=== PATIENT | female | born 1995 | race Caucasian/White ===

== ENCOUNTER 2018-08-28 16:31 | Emergency (ER) | payer MEDICAID ==
[2018-08-28] MEDS: ACETAMINOPHEN 500 MG TAB PO (17:10)
[2018-08-28 17:28] LABS: ADD MAN DIFF? NO
[2018-08-28 17:36] LABS: WHITE BLOOD COUNT 11.4 10^3/ul (4.8-10.8)
[2018-08-28 17:36] LABS: BASOPHILS % 0.3 % (0.0-2.0); EOSINOPHILS % 0.4 % (0.0-7.0); HEMATOCRIT 36.2 % (37.0-47.0); HEMOGLOBIN 12.5 g/dl (12.0-16.0); LYMPHOCYTES # 2.5 10^3/ul (0.8-2.9); LYMPHOCYTES % 21.8 % (15.0-51.0); MEAN CORPUSCULAR HEMOGLOBIN 29.8 pg (29.0-33.0); MEAN CORPUSCULAR HGB CONC 34.5 g/dl (32.0-37.0); MEAN CORPUSCULAR VOLUME 86.4 fl (82.0-101.0); MEAN PLATELET VOLUME 8.5 fl (7.4-10.4); MONOCYTE # 0.5 10^3/ul (0.3-0.9); MONOCYTES % 4.1 % (0.0-11.0); NEUTROPHIL # 8.3 10^3/ul (1.6-7.5); PLATELET COUNT 433 10^3/UL (140-415); RED BLOOD COUNT 4.19 10^6/ul (4.20-5.40); RED CELL DISTRIBUTION WIDTH 12.9 % (11.5-14.5)
[2018-08-28 17:55] LABS: ADD UMIC YES; UR ASCORBIC ACID NEGATIVE (NEGATIVE); UR BACTERIA MANY /HPF (NONE SEEN); UR BILIRUBIN (Dip) NEGATIVE (NEGATIVE); UR BLOOD (Dip) NEGATIVE (NEGATIVE); UR CLARITY CLOUDY (CLEAR); UR COLOR YELLOW (YELLOW); UR GLUCOSE (Dip) NEGATIVE (NEGATIVE); UR KETONES (Dip) NEGATIVE (NEGATIVE); UR LEUKOCYTE ESTERASE (Dip) 1+ Leu/ul (NEGATIVE); UR MUCUS FEW /HPF (NONE SEEN); UR NITRITE (Dip) POSITIVE (NEGATIVE); UR RBC 1 /HPF (0-5); UR SPECIFIC GRAVITY (Dip) 1.017 (1.003-1.030); UR SQUAMOUS EPITHELIAL CELL MODERATE /HPF (FEW); UR TOTAL PROTEIN (Dip) NEGATIVE (NEGATIVE); UR UROBILINOGEN (Dip) NEGATIVE (NEGATIVE); UR WBC 3 /HPF (0-5)
[2018-08-28 17:56] LABS: ALBUMIN 4.2 g/dl (3.3-4.9); ALBUMIN/GLOBULIN RATIO 1.07; ALKALINE PHOSPHATASE 71 IU/L (42-121); ANION GAP 11 (5-13); ASPARTATE AMINO TRANSFERASE 19 IU/L (15-46); BILIRUBIN,INDIRECT 0.1 mg/dl (0-1.1); BILIRUBIN,TOTAL 0.1 mg/dl (0.2-1.3); BLOOD UREA NITROGEN 8 mg/dl (7-20); CALCIUM 9.7 mg/dl (8.4-10.2); CARBON DIOXIDE 23 mmol/L (21-31); CHLORIDE 104 mmol/L (97-110); CREATININE 0.53 mg/dl (0.44-1.00); Estimated GFR > 60 mL/min (>60); GLUCOSE 89 mg/dl (70-220); LIPASE 86 U/L (23-300); POTASSIUM 4.2 mmol/L (3.5-5.1); SODIUM 138 mmol/L (135-144); TOTAL PROTEIN 8.1 g/dl (6.1-8.1)
[2018-08-28 18:01] LABS: ALANINE AMINOTRANSFERASE < 6 IU/L (13-69)
== END 2018-08-28 19:27 | disposition home or self-care (01) ==
LOC: FTE 16:31
DX: O26.891 Other specified pregnancy related conditions, first trimester (principal); O23.11 Infections of bladder in pregnancy, first trimester; Z3A.12 12 weeks gestation of pregnancy
CPT/HCPCS: 36415; 76700; 76801; 80053; 81001; 83690; 84702; 85025; 99284-25

== ENCOUNTER 2018-10-14 17:54 | Emergency (ER) | payer SELFPAY, MEDICAID | END 2018-10-14 18:31 | disposition left against medical advice (07) | LOC: FTE 17:54 | DX: Z53.21 Procedure and treatment not carried out due to patient leaving prior to being seen by health care provider (principal) ==

== ENCOUNTER 2018-12-01 19:21 | Inpatient (IN) | payer MEDICAID ==
[2018-12-01] MEDS: LACTATED RINGER'S 1,000 ML IV ×2 (20:45→22:12)
[2018-12-01] MEDS: TERBUTALINE 1 MG/ML INJ SC (20:45)
[2018-12-01 21:00] LABS: ADD UMIC NO; UR AMORPHOUS CRYSTAL FEW /HPF (NONE SEEN); UR ASCORBIC ACID NEGATIVE (NEGATIVE); UR BACTERIA FEW /HPF (NONE SEEN); UR BILIRUBIN (Dip) NEGATIVE (NEGATIVE); UR BLOOD (Dip) NEGATIVE (NEGATIVE); UR CLARITY SLIGHTLY CLOUDY (CLEAR); UR COLOR YELLOW (YELLOW); UR GLUCOSE (Dip) NEGATIVE (NEGATIVE); UR KETONES (Dip) NEGATIVE (NEGATIVE); UR LEUKOCYTE ESTERASE (Dip) NEGATIVE Leu/ul (NEGATIVE); UR MUCUS FEW /HPF (NONE SEEN); UR NITRITE (Dip) NEGATIVE (NEGATIVE); UR RBC 1 /HPF (0-5); UR SPECIFIC GRAVITY (Dip) 1.012 (1.003-1.030); UR SQUAMOUS EPITHELIAL CELL FEW /HPF (FEW); UR TOTAL PROTEIN (Dip) NEGATIVE (NEGATIVE); UR UROBILINOGEN (Dip) NEGATIVE (NEGATIVE); UR WBC 2 /HPF (0-5)
[2018-12-01 21:18] LABS: ADD MAN DIFF? NO
[2018-12-01 21:20] LABS: BASOPHILS % 0.3 % (0.0-2.0); EOSINOPHILS % 0.3 % (0.0-7.0); HEMATOCRIT 30.6 % (37.0-47.0); HEMOGLOBIN 10.5 g/dl (12.0-16.0); LYMPHOCYTES # 2.3 10^3/ul (0.8-2.9); LYMPHOCYTES % 22.2 % (15.0-51.0); MEAN CORPUSCULAR HEMOGLOBIN 30.5 pg (29.0-33.0); MEAN CORPUSCULAR HGB CONC 34.3 g/dl (32.0-37.0); MONOCYTE # 0.6 10^3/ul (0.3-0.9); MONOCYTES % 5.3 % (0.0-11.0); NEUTROPHIL # 7.5 10^3/ul (1.6-7.5); NEUTROPHILS % 71.4 % (39.0-77.0); PLATELET COUNT 378 10^3/UL (140-415); RED BLOOD COUNT 3.44 10^6/ul (4.20-5.40); RED CELL DISTRIBUTION WIDTH 12.3 % (11.5-14.5)
[2018-12-01 21:20] LABS: WHITE BLOOD COUNT 10.4 10^3/ul (4.8-10.8)
[2018-12-01] MEDS: ACETAMINOPHEN 500 MG TAB PO (23:00)
[2018-12-02 00:11] LABS: ALKALINE PHOSPHATASE 85 IU/L (42-121); ANION GAP 12 (5-13); ASPARTATE AMINO TRANSFERASE 19 IU/L (15-46); BLOOD UREA NITROGEN 8 mg/dl (7-20); CALCIUM 8.9 mg/dl (8.4-10.2); CARBON DIOXIDE 22 mmol/L (21-31); CHLORIDE 109 mmol/L (97-110); CREATININE 0.47 mg/dl (0.44-1.00); Estimated GFR > 60 mL/min (>60); GLUCOSE 86 mg/dl (70-220); SODIUM 143 mmol/L (135-144)
[2018-12-02 00:12] LABS: ALBUMIN 3.3 g/dl (3.3-4.9); BILIRUBIN,INDIRECT 0.1 mg/dl (0-1.1); BILIRUBIN,TOTAL 0.1 mg/dl (0.2-1.3); TOTAL PROTEIN 6.6 g/dl (6.1-8.1)
[2018-12-02 00:18] LABS: ALANINE AMINOTRANSFERASE < 6 IU/L (13-69)
[2018-12-02 02:32] LABS: RUPTURE FETAL MEMBRANES NEGATIVE (NEGATIVE)
[2018-12-02] MEDS: ACETAMINOPHEN 325 MG TAB PO (03:30)
[2018-12-02] MEDS: LACTATED RINGER'S 1,000 ML IV (06:18)
[2018-12-02] MEDS ORDERED: LACTATED RINGER'S 1,000 ML IV (06:33)
[2018-12-02] MEDS ORDERED: ACETAMINOPHEN 325 MG TAB PO (07:00)
[2018-12-02] MEDS ORDERED: FERROUS SULFATE (EC) 325 MG TAB PO (09:00)
[2018-12-02] MEDS ORDERED: PRENATAL VITAMIN PO (09:00)
[2018-12-02] MEDS ORDERED: DOCUSATE SODIUM 100 MG CAP PO (09:00)
== END 2018-12-02 13:43 | disposition home or self-care (01) | DRG 833 ==
LOC: OBT 19:21 → L-D 19:22
DX: O47.02 False labor before 37 completed weeks of gestation, second trimester (principal); Z3A.27 27 weeks gestation of pregnancy
CPT/HCPCS: 36415; 76775; 76817; 76818; 80053; 81001; 81003; 84112; 85025; 87086; 96360; 96361; 96372

== ENCOUNTER 2018-12-03 00:28 | Outpatient (CLI) | payer MEDICAID ==
[2018-12-03 01:17] LABS: ADD UMIC NO; UR ASCORBIC ACID NEGATIVE (NEGATIVE); UR BILIRUBIN (Dip) NEGATIVE (NEGATIVE); UR BLOOD (Dip) NEGATIVE (NEGATIVE); UR CLARITY CLEAR (CLEAR); UR COLOR STRAW (YELLOW); UR GLUCOSE (Dip) NEGATIVE (NEGATIVE); UR KETONES (Dip) NEGATIVE (NEGATIVE); UR LEUKOCYTE ESTERASE (Dip) NEGATIVE Leu/ul (NEGATIVE); UR NITRITE (Dip) NEGATIVE (NEGATIVE); UR SPECIFIC GRAVITY (Dip) 1.009 (1.003-1.030); UR TOTAL PROTEIN (Dip) NEGATIVE (NEGATIVE); UR UROBILINOGEN (Dip) NEGATIVE (NEGATIVE)
[2018-12-03] MEDS: AL HYDROX/MG HYDROX/SIMETH 30 ML CUP PO (01:17)
[2018-12-03] MEDS: CEFTRIAXONE 1 GM/50 ML (PMX) 50 ML IVPB (04:21)
[2018-12-03] MEDS: SOD CHLORIDE 0.9% 1,000 ML IV (04:23)
[2018-12-03] MEDS: morphine 4 MG/ML VIAL IV (04:24)
[2018-12-03] MEDS: LACTATED RINGER'S 1,000 ML IV ×2 (04:58→06:36)
== END 2018-12-03 15:05 | disposition home or self-care (01) ==
LOC: OBT 00:28 → L-D 00:28 → OBT 15:05
DX: O26.892 Other specified pregnancy related conditions, second trimester (principal); R10.30 Lower abdominal pain, unspecified; O34.219 Maternal care for unspecified type scar from previous cesarean delivery; Z3A.27 27 weeks gestation of pregnancy
CPT/HCPCS: 72195; 76817; 81003; 87086; 96360; 96361

== ENCOUNTER 2018-12-24 07:22 | Outpatient (CLI) | payer MEDICAID ==
[2018-12-24] MEDS: LACTATED RINGER'S 1,000 ML IV (08:17)
[2018-12-24] MEDS: TERBUTALINE 1 MG/ML INJ SC (08:17)
[2018-12-24 08:26] LABS: ADD MAN DIFF? NO
[2018-12-24 08:29] LABS: BASOPHIL # 0.1 10^3/ul (0.0-0.1); BASOPHILS % 0.4 % (0.0-2.0); EOSINOPHILS % 0.3 % (0.0-7.0); HEMATOCRIT 31.4 % (37.0-47.0); HEMOGLOBIN 10.5 g/dl (12.0-16.0); LYMPHOCYTES # 3.3 10^3/ul (0.8-2.9); LYMPHOCYTES % 26.7 % (15.0-51.0); MEAN CORPUSCULAR HEMOGLOBIN 29.2 pg (29.0-33.0); MEAN CORPUSCULAR HGB CONC 33.4 g/dl (32.0-37.0); MEAN CORPUSCULAR VOLUME 87.2 fl (82.0-101.0); MEAN PLATELET VOLUME 8.7 fl (7.4-10.4); MONOCYTE # 0.7 10^3/ul (0.3-0.9); MONOCYTES % 5.2 % (0.0-11.0); NEUTROPHIL # 8.2 10^3/ul (1.6-7.5); PLATELET COUNT 356 10^3/UL (140-415); RED CELL DISTRIBUTION WIDTH 12.3 % (11.5-14.5)
[2018-12-24 08:29] LABS: WHITE BLOOD COUNT 12.5 10^3/ul (4.8-10.8)
[2018-12-24 08:34] LABS: ADD UMIC YES; UR ASCORBIC ACID NEGATIVE (NEGATIVE); UR BILIRUBIN (Dip) NEGATIVE (NEGATIVE); UR BLOOD (Dip) NEGATIVE (NEGATIVE); UR CLARITY CLEAR (CLEAR); UR COLOR STRAW (YELLOW); UR GLUCOSE (Dip) NEGATIVE (NEGATIVE); UR KETONES (Dip) NEGATIVE (NEGATIVE); UR LEUKOCYTE ESTERASE (Dip) 1+ Leu/ul (NEGATIVE); UR NITRITE (Dip) NEGATIVE (NEGATIVE); UR RBC 1 /HPF (0-5); UR SQUAMOUS EPITHELIAL CELL FEW /HPF (FEW); UR TOTAL PROTEIN (Dip) NEGATIVE (NEGATIVE); UR UROBILINOGEN (Dip) NEGATIVE (NEGATIVE); UR WBC 1 /HPF (0-5)
== END 2018-12-24 10:45 | disposition home or self-care (01) ==
LOC: OBT 07:22 → L-D 07:25 → OBT 10:45
DX: O62.9 Abnormality of forces of labor, unspecified (principal); O26.893 Other specified pregnancy related conditions, third trimester; R10.2 Pelvic and perineal pain; M54.5 Low back pain; Z3A.29 29 weeks gestation of pregnancy
CPT/HCPCS: 36415; 76817; 81001; 85025; 87086; 96360; 96361; 96372

== ENCOUNTER 2019-01-12 17:02 | Outpatient (CLI) | payer MEDICAID ==
[2019-01-12 19:11] LABS: ADD UMIC YES; UR AMORPHOUS CRYSTAL MANY /HPF (NONE SEEN); UR ASCORBIC ACID NEGATIVE (NEGATIVE); UR BACTERIA FEW /HPF (NONE SEEN); UR BILIRUBIN (Dip) NEGATIVE (NEGATIVE); UR BLOOD (Dip) NEGATIVE (NEGATIVE); UR CLARITY TURBID (CLEAR); UR COLOR YELLOW (YELLOW); UR GLUCOSE (Dip) NEGATIVE (NEGATIVE); UR KETONES (Dip) NEGATIVE (NEGATIVE); UR LEUKOCYTE ESTERASE (Dip) 3+ Leu/ul (NEGATIVE); UR NITRITE (Dip) NEGATIVE (NEGATIVE); UR RBC 0 /HPF (0-5); UR SPECIFIC GRAVITY (Dip) 1.016 (1.003-1.030); UR SQUAMOUS EPITHELIAL CELL FEW /HPF (FEW); UR TOTAL PROTEIN (Dip) NEGATIVE (NEGATIVE); UR UROBILINOGEN (Dip) NEGATIVE (NEGATIVE); UR WBC 4 /HPF (0-5)
[2019-01-12 19:25] LABS: ADD MAN DIFF? NO
[2019-01-12 19:28] LABS: WHITE BLOOD COUNT 10.4 10^3/ul (4.8-10.8)
[2019-01-12 19:28] LABS: BASOPHILS % 0.3 % (0.0-2.0); EOSINOPHILS % 0.2 % (0.0-7.0); HEMATOCRIT 31.2 % (37.0-47.0); HEMOGLOBIN 10.5 g/dl (12.0-16.0); LYMPHOCYTES # 2.3 10^3/ul (0.8-2.9); LYMPHOCYTES % 22.3 % (15.0-51.0); MEAN CORPUSCULAR HEMOGLOBIN 29.2 pg (29.0-33.0); MEAN CORPUSCULAR HGB CONC 33.7 g/dl (32.0-37.0); MEAN CORPUSCULAR VOLUME 86.7 fl (82.0-101.0); MEAN PLATELET VOLUME 8.9 fl (7.4-10.4); MONOCYTE # 0.6 10^3/ul (0.3-0.9); MONOCYTES % 5.7 % (0.0-11.0); NEUTROPHIL # 7.4 10^3/ul (1.6-7.5); NEUTROPHILS % 70.6 % (39.0-77.0); PLATELET COUNT 356 10^3/UL (140-415); RED CELL DISTRIBUTION WIDTH 12.8 % (11.5-14.5)
[2019-01-12] MEDS: ACETAMINOPHEN 500 MG TAB PO (21:47)
== END 2019-01-12 22:40 | disposition home or self-care (01) ==
LOC: OBT 17:02 → L-D 17:04 → OBT 22:40
DX: O26.893 Other specified pregnancy related conditions, third trimester (principal); R10.2 Pelvic and perineal pain; Z3A.32 32 weeks gestation of pregnancy
CPT/HCPCS: 76815; 76817; 81001; 82731; 85025

== ENCOUNTER 2019-01-19 01:10 | Outpatient (CLI) | payer MEDICAID ==
[2019-01-19 03:25] LABS: ADD MAN DIFF? NO
[2019-01-19 03:27] LABS: WHITE BLOOD COUNT 11.3 10^3/ul (4.8-10.8)
[2019-01-19 03:27] LABS: BASOPHILS % 0.3 % (0.0-2.0); EOSINOPHILS % 0.3 % (0.0-7.0); HEMATOCRIT 28.5 % (37.0-47.0); HEMOGLOBIN 9.8 g/dl (12.0-16.0); LYMPHOCYTES # 2.7 10^3/ul (0.8-2.9); LYMPHOCYTES % 23.6 % (15.0-51.0); MEAN CORPUSCULAR HGB CONC 34.4 g/dl (32.0-37.0); MEAN CORPUSCULAR VOLUME 84.3 fl (82.0-101.0); MEAN PLATELET VOLUME 8.7 fl (7.4-10.4); MONOCYTE # 0.7 10^3/ul (0.3-0.9); MONOCYTES % 6.3 % (0.0-11.0); NEUTROPHIL # 7.7 10^3/ul (1.6-7.5); NEUTROPHILS % 68.3 % (39.0-77.0); PLATELET COUNT 368 10^3/UL (140-415); RED BLOOD COUNT 3.38 10^6/ul (4.20-5.40); RED CELL DISTRIBUTION WIDTH 12.6 % (11.5-14.5)
[2019-01-19 03:30] LABS: ADD UMIC YES; UR ASCORBIC ACID NEGATIVE (NEGATIVE); UR BILIRUBIN (Dip) NEGATIVE (NEGATIVE); UR BLOOD (Dip) NEGATIVE (NEGATIVE); UR CLARITY SLIGHTLY CLOUDY (CLEAR); UR COLOR STRAW (YELLOW); UR GLUCOSE (Dip) NEGATIVE (NEGATIVE); UR KETONES (Dip) NEGATIVE (NEGATIVE); UR LEUKOCYTE ESTERASE (Dip) TRACE Leu/ul (NEGATIVE); UR NITRITE (Dip) NEGATIVE (NEGATIVE); UR RBC 1 /HPF (0-5); UR SPECIFIC GRAVITY (Dip) 1.008 (1.003-1.030); UR SQUAMOUS EPITHELIAL CELL FEW /HPF (FEW); UR TOTAL PROTEIN (Dip) NEGATIVE (NEGATIVE); UR UROBILINOGEN (Dip) NEGATIVE (NEGATIVE); UR WBC 1 /HPF (0-5)
== END 2019-01-19 05:50 | disposition home or self-care (01) ==
LOC: OBT 01:10 → L-D 01:10 → OBT 05:50
DX: O26.893 Other specified pregnancy related conditions, third trimester (principal); R10.9 Unspecified abdominal pain; Z3A.33 33 weeks gestation of pregnancy
CPT/HCPCS: 76815; 76817; 81001; 85025

== ENCOUNTER 2019-02-05 05:21 | Outpatient (CLI) | payer MEDICAID ==
[2019-02-05 06:30] LABS: ADD MAN DIFF? NO
[2019-02-05] MEDS: LACTATED RINGER'S 1,000 ML IV ×2 (06:30→07:34)
[2019-02-05 06:37] LABS: BASOPHILS % 0.2 % (0.0-2.0); EOSINOPHILS % 0.2 % (0.0-7.0); HEMATOCRIT 31.6 % (37.0-47.0); HEMOGLOBIN 10.1 g/dl (12.0-16.0); LYMPHOCYTES # 3.1 10^3/ul (0.8-2.9); LYMPHOCYTES % 23.7 % (15.0-51.0); MEAN CORPUSCULAR HEMOGLOBIN 27.4 pg (29.0-33.0); MEAN CORPUSCULAR VOLUME 85.9 fl (82.0-101.0); MEAN PLATELET VOLUME 9.2 fl (7.4-10.4); MONOCYTE # 0.6 10^3/ul (0.3-0.9); MONOCYTES % 4.8 % (0.0-11.0); NEUTROPHIL # 9.1 10^3/ul (1.6-7.5); NEUTROPHILS % 70.5 % (39.0-77.0); PLATELET COUNT 352 10^3/UL (140-415); RED BLOOD COUNT 3.68 10^6/ul (4.20-5.40); RED CELL DISTRIBUTION WIDTH 13.5 % (11.5-14.5)
[2019-02-05 06:39] LABS: ADD UMIC YES; UR ASCORBIC ACID NEGATIVE (NEGATIVE); UR BACTERIA FEW /HPF (NONE SEEN); UR BILIRUBIN (Dip) NEGATIVE (NEGATIVE); UR BLOOD (Dip) NEGATIVE (NEGATIVE); UR CLARITY SLIGHTLY CLOUDY (CLEAR); UR COLOR YELLOW (YELLOW); UR GLUCOSE (Dip) NEGATIVE (NEGATIVE); UR KETONES (Dip) NEGATIVE (NEGATIVE); UR LEUKOCYTE ESTERASE (Dip) 1+ Leu/ul (NEGATIVE); UR NITRITE (Dip) NEGATIVE (NEGATIVE); UR RBC 4 /HPF (0-5); UR SPECIFIC GRAVITY (Dip) 1.013 (1.003-1.030); UR SQUAMOUS EPITHELIAL CELL MODERATE /HPF (FEW); UR TOTAL PROTEIN (Dip) NEGATIVE (NEGATIVE); UR UROBILINOGEN (Dip) NEGATIVE (NEGATIVE); UR WBC 5 /HPF (0-5)
== END 2019-02-05 08:50 | disposition home or self-care (01) ==
LOC: OBT 05:21 → L-D 05:22 → OBT 08:50
DX: O47.03 False labor before 37 completed weeks of gestation, third trimester (principal); O34.219 Maternal care for unspecified type scar from previous cesarean delivery; Z3A.36 36 weeks gestation of pregnancy
CPT/HCPCS: 36415; 76817; 76818; 81001; 85025; 96360; 96361

== ENCOUNTER 2019-02-08 19:02 | Outpatient (CLI) | payer MEDICAID ==
[2019-02-08 20:34] LABS: ADD UMIC NO; UR ASCORBIC ACID NEGATIVE (NEGATIVE); UR BACTERIA FEW /HPF (NONE SEEN); UR BILIRUBIN (Dip) NEGATIVE (NEGATIVE); UR BLOOD (Dip) NEGATIVE (NEGATIVE); UR CLARITY SLIGHTLY CLOUDY (CLEAR); UR COLOR YELLOW (YELLOW); UR GLUCOSE (Dip) NEGATIVE (NEGATIVE); UR KETONES (Dip) NEGATIVE (NEGATIVE); UR LEUKOCYTE ESTERASE (Dip) NEGATIVE Leu/ul (NEGATIVE); UR MUCUS FEW /HPF (NONE SEEN); UR NITRITE (Dip) NEGATIVE (NEGATIVE); UR RBC 0 /HPF (0-5); UR SPECIFIC GRAVITY (Dip) 1.023 (1.003-1.030); UR SQUAMOUS EPITHELIAL CELL FEW /HPF (FEW); UR TOTAL PROTEIN (Dip) NEGATIVE (NEGATIVE); UR UROBILINOGEN (Dip) NEGATIVE (NEGATIVE); UR WBC 1 /HPF (0-5)
== END 2019-02-08 21:10 | disposition home or self-care (01) ==
LOC: OBT 19:02 → L-D 19:03 → OBT 21:10
DX: O26.893 Other specified pregnancy related conditions, third trimester (principal); R10.2 Pelvic and perineal pain; Z3A.36 36 weeks gestation of pregnancy
CPT/HCPCS: 81001; 81003; 87086

== ENCOUNTER 2019-02-11 15:31 | Outpatient (CLI) | payer MEDICAID ==
[2019-02-11 16:30] LABS: ADD UMIC YES; UR ASCORBIC ACID NEGATIVE (NEGATIVE); UR BACTERIA FEW /HPF (NONE SEEN); UR BILIRUBIN (Dip) NEGATIVE (NEGATIVE); UR BLOOD (Dip) NEGATIVE (NEGATIVE); UR CLARITY SLIGHTLY CLOUDY (CLEAR); UR COLOR YELLOW (YELLOW); UR GLUCOSE (Dip) NEGATIVE (NEGATIVE); UR KETONES (Dip) NEGATIVE (NEGATIVE); UR LEUKOCYTE ESTERASE (Dip) 1+ Leu/ul (NEGATIVE); UR MUCUS FEW /HPF (NONE SEEN); UR NITRITE (Dip) NEGATIVE (NEGATIVE); UR RBC 1 /HPF (0-5); UR SPECIFIC GRAVITY (Dip) 1.016 (1.003-1.030); UR SQUAMOUS EPITHELIAL CELL MODERATE /HPF (FEW); UR TOTAL PROTEIN (Dip) NEGATIVE (NEGATIVE); UR UROBILINOGEN (Dip) NEGATIVE (NEGATIVE); UR WBC 2 /HPF (0-5)
[2019-02-11 16:54] LABS: RUPTURE FETAL MEMBRANES NEGATIVE (NEGATIVE)
== END 2019-02-11 18:20 | disposition home or self-care (01) ==
LOC: OBT 15:31 → L-D 15:32 → OBT 18:20
DX: O41.03X0 Oligohydramnios, third trimester, not applicable or unspecified (principal); O34.219 Maternal care for unspecified type scar from previous cesarean delivery; Z3A.37 37 weeks gestation of pregnancy
CPT/HCPCS: 76815; 76818; 81001; 84112

== ENCOUNTER 2019-02-21 13:48 | Inpatient (IN) | payer MEDICAID ==
[2019-02-21 14:41] LABS: ADD UMIC YES; UR ASCORBIC ACID NEGATIVE (NEGATIVE); UR BACTERIA FEW /HPF (NONE SEEN); UR BILIRUBIN (Dip) NEGATIVE (NEGATIVE); UR BLOOD (Dip) NEGATIVE (NEGATIVE); UR CLARITY CLOUDY (CLEAR); UR COLOR YELLOW (YELLOW); UR GLUCOSE (Dip) NEGATIVE (NEGATIVE); UR KETONES (Dip) NEGATIVE (NEGATIVE); UR LEUKOCYTE ESTERASE (Dip) 3+ Leu/ul (NEGATIVE); UR NITRITE (Dip) NEGATIVE (NEGATIVE); UR RBC 3 /HPF (0-5); UR SPECIFIC GRAVITY (Dip) 1.011 (1.003-1.030); UR SQUAMOUS EPITHELIAL CELL MODERATE /HPF (FEW); UR TOTAL PROTEIN (Dip) NEGATIVE (NEGATIVE); UR UROBILINOGEN (Dip) NEGATIVE (NEGATIVE); UR WBC 4 /HPF (0-5)
[2019-02-21] MEDS ORDERED: METHYLERGONOVINE 0.2 MG INJ IM (16:30)
[2019-02-21] MEDS ORDERED: OXYTOCIN 30 UNITS/LR 500 ML IV (16:30)
[2019-02-21] MEDS ORDERED: CARBOPROST 250 MCG INJ IM (16:30)
[2019-02-21] MEDS ORDERED: MISOPROSTOL 200 MCG TAB PR (16:30)
[2019-02-21] MEDS: LACTATED RINGER'S 1,000 ML IV ×2 (16:34→21:24)
[2019-02-21 16:45] LABS: ADD MAN DIFF? NO
[2019-02-21 16:48] LABS: BASOPHILS % 0.4 % (0.0-2.0); EOSINOPHILS % 0.2 % (0.0-7.0); HEMATOCRIT 32.9 % (37.0-47.0); HEMOGLOBIN 10.7 g/dl (12.0-16.0); LYMPHOCYTES # 2.4 10^3/ul (0.8-2.9); LYMPHOCYTES % 22.2 % (15.0-51.0); MEAN CORPUSCULAR HEMOGLOBIN 27.3 pg (29.0-33.0); MEAN CORPUSCULAR HGB CONC 32.5 g/dl (32.0-37.0); MEAN CORPUSCULAR VOLUME 83.9 fl (82.0-101.0); MEAN PLATELET VOLUME 9.1 fl (7.4-10.4); MONOCYTE # 0.7 10^3/ul (0.3-0.9); MONOCYTES % 5.9 % (0.0-11.0); NEUTROPHIL # 7.7 10^3/ul (1.6-7.5); NEUTROPHILS % 70.5 % (39.0-77.0); PLATELET COUNT 362 10^3/UL (140-415); RED BLOOD COUNT 3.92 10^6/ul (4.20-5.40); RED CELL DISTRIBUTION WIDTH 13.9 % (11.5-14.5)
[2019-02-21 17:07] LABS: INR 0.92; PROTIME 12.5 Sec (11.9-14.9)
[2019-02-21 17:08] LABS: PARTIAL THROMBOPLASTIN TIME 29.2 Sec (23.0-35.0)
[2019-02-22] MEDS: LACTATED RINGER'S 1,000 ML IV ×5 (05:44→21:14)
[2019-02-22] MEDS ORDERED: PHENYLephrine (100 MCG/ML) 10ML SYG (14:27)
[2019-02-22] MEDS ORDERED: DEXAMETHASONE 4 MG/ML 1 ML INJ (14:27)
[2019-02-22] MEDS ORDERED: ONDANSETRON 4 MG INJ (14:28)
[2019-02-22] MEDS ORDERED: morphine SULFATE/PF (10 MG/10 ML) INJ (14:37)
[2019-02-22] MEDS ORDERED: ONDANSETRON 4 MG INJ IV (15:00)
[2019-02-22] MEDS ORDERED: NALOXONE (0.4 MG/ML) INJ IV (15:00)
[2019-02-22] MEDS ORDERED: HYDROmorphONE 0.5 MG/0.5 ML SYG IV ×2 (15:00)
[2019-02-22] MEDS ORDERED: KETOROLAC 30 MG INJ IV (15:00)
[2019-02-22] MEDS ORDERED: ZOLPIDEM 5 MG TAB PO (15:00)
[2019-02-22] MEDS: OXYTOCIN 30 UNITS/LR 500 ML IV (15:34)
[2019-02-22] MEDS: CEFAZOLIN 2 GM/50 ML (PMX) 50 ML IVPB ×2 (15:49→22:32)
[2019-02-22] MEDS: DIPHENHYDRAMINE 50 MG INJ IV (16:11)
[2019-02-22] MEDS: AZITHROMYCIN 500MG/NS (PMX) 250 ML IVPB (16:11)
[2019-02-22] MEDS: KETOROLAC 30 MG INJ IV (16:12)
[2019-02-22] MEDS: ACETAMINOPHEN 500 MG TAB PO (18:10)
[2019-02-22] MEDS ORDERED: HYDROCODONE/APAP (5/325) TAB PO (18:30)
[2019-02-22] MEDS ORDERED: NA PHOSPHATE/BIPHOS 133 ML ENEMA PR (18:30)
[2019-02-22] MEDS ORDERED: LANOLIN HPA 1 PKT TOP (18:30)
[2019-02-22] MEDS ORDERED: CARBOPROST 250 MCG INJ IM (18:30)
[2019-02-22] MEDS ORDERED: OXYTOCIN 30 UNITS/LR 500 ML IV (18:30)
[2019-02-22] MEDS ORDERED: METHYLERGONOVINE 0.2 MG INJ IM (18:30)
[2019-02-22] MEDS ORDERED: MISOPROSTOL 200 MCG TAB PR (18:30)
[2019-02-22] MEDS ORDERED: OXYCODONE/ACETAMINOPHEN (5/325) TAB PO (18:30)
[2019-02-22 19:21] LABS: RAPID PLASMA REAGIN NONREACTIVE (NR)
[2019-02-22] MEDS: SENNA/DOCUSATE NA (8.6MG/50MG) TAB PO (21:14)
[2019-02-22] MEDS: IBUPROFEN 800 MG TAB PO (22:00)
[2019-02-22] MEDS: CLINDAMYCIN 300 MG CAP PO (23:33)
[2019-02-23] MEDS: DIPHENHYDRAMINE 50 MG INJ IV (04:28)
[2019-02-23] MEDS: CLINDAMYCIN 300 MG CAP PO ×2 (05:36→12:30)
[2019-02-23] MEDS: LACTATED RINGER'S 1,000 ML IV ×3 (05:36→23:00)
[2019-02-23] MEDS: CEFAZOLIN 2 GM/50 ML (PMX) 50 ML IVPB ×2 (05:40→10:48)
[2019-02-23] MEDS: IBUPROFEN 800 MG TAB PO ×3 (06:00→22:12)
[2019-02-23 07:15] LABS: ADD MAN DIFF? NO
[2019-02-23 07:23] LABS: BASOPHILS % 0.1 % (0.0-2.0); HEMATOCRIT 29.8 % (37.0-47.0); HEMOGLOBIN 9.8 g/dl (12.0-16.0); LYMPHOCYTES # 2.5 10^3/ul (0.8-2.9); LYMPHOCYTES % 12.1 % (15.0-51.0); MEAN CORPUSCULAR HEMOGLOBIN 27.2 pg (29.0-33.0); MEAN CORPUSCULAR HGB CONC 32.9 g/dl (32.0-37.0); MEAN CORPUSCULAR VOLUME 82.8 fl (82.0-101.0); MEAN PLATELET VOLUME 9.5 fl (7.4-10.4); NEUTROPHIL # 17.2 10^3/ul (1.6-7.5); NEUTROPHILS % 82.1 % (39.0-77.0); PLATELET COUNT 342 10^3/UL (140-415); RED CELL DISTRIBUTION WIDTH 13.5 % (11.5-14.5)
[2019-02-23 07:23] LABS: WHITE BLOOD COUNT 20.9 10^3/ul (4.8-10.8)
[2019-02-23] MEDS: BISACODYL 10 MG SUPP PR (12:30)
[2019-02-23] MEDS: SENNA/DOCUSATE NA (8.6MG/50MG) TAB PO ×2 (12:30→21:16)
[2019-02-23 14:37] LABS: ADD MAN DIFF? NO
[2019-02-23 14:39] LABS: BASOPHILS % 0.2 % (0.0-2.0); HEMOGLOBIN 9.8 g/dl (12.0-16.0); LYMPHOCYTES # 3.2 10^3/ul (0.8-2.9); LYMPHOCYTES % 18.8 % (15.0-51.0); MEAN CORPUSCULAR HEMOGLOBIN 27.1 pg (29.0-33.0); MEAN CORPUSCULAR HGB CONC 32.7 g/dl (32.0-37.0); MEAN CORPUSCULAR VOLUME 83.1 fl (82.0-101.0); MEAN PLATELET VOLUME 9.3 fl (7.4-10.4); MONOCYTE # 1.1 10^3/ul (0.3-0.9); MONOCYTES % 6.3 % (0.0-11.0); NEUTROPHIL # 12.7 10^3/ul (1.6-7.5); NEUTROPHILS % 74.1 % (39.0-77.0); PLATELET COUNT 356 10^3/UL (140-415); RED BLOOD COUNT 3.61 10^6/ul (4.20-5.40); RED CELL DISTRIBUTION WIDTH 13.6 % (11.5-14.5)
[2019-02-23 14:39] LABS: WHITE BLOOD COUNT 17.1 10^3/ul (4.8-10.8)
[2019-02-23] MEDS: DOXYCYCLINE 100 MG TAB PO ×2 (15:30→21:16)
[2019-02-23] MEDS: CIPROFLOXACIN 500 MG TAB PO (15:41)
[2019-02-24] MEDS: LACTATED RINGER'S 1,000 ML IV (05:30)
[2019-02-24] MEDS: IBUPROFEN 800 MG TAB PO ×3 (05:37→21:51)
[2019-02-24 07:04] LABS: ADD MAN DIFF? NO
[2019-02-24 07:09] LABS: WHITE BLOOD COUNT 13.3 10^3/ul (4.8-10.8)
[2019-02-24 07:09] LABS: BASOPHILS % 0.3 % (0.0-2.0); EOSINOPHILS % 0.3 % (0.0-7.0); HEMATOCRIT 29.2 % (37.0-47.0); HEMOGLOBIN 9.7 g/dl (12.0-16.0); LYMPHOCYTES # 3.6 10^3/ul (0.8-2.9); LYMPHOCYTES % 26.8 % (15.0-51.0); MEAN CORPUSCULAR HEMOGLOBIN 27.6 pg (29.0-33.0); MEAN CORPUSCULAR HGB CONC 33.2 g/dl (32.0-37.0); MEAN PLATELET VOLUME 9.1 fl (7.4-10.4); MONOCYTE # 0.8 10^3/ul (0.3-0.9); NEUTROPHIL # 8.7 10^3/ul (1.6-7.5); NEUTROPHILS % 65.8 % (39.0-77.0); PLATELET COUNT 362 10^3/UL (140-415); RED BLOOD COUNT 3.52 10^6/ul (4.20-5.40); RED CELL DISTRIBUTION WIDTH 13.9 % (11.5-14.5)
[2019-02-24] MEDS: SENNA/DOCUSATE NA (8.6MG/50MG) TAB PO ×2 (09:08→21:51)
[2019-02-24] MEDS: DOXYCYCLINE 100 MG TAB PO ×2 (09:08→23:09)
[2019-02-24] MEDS ORDERED: ACETAMINOPHEN 325 MG TAB PO (13:30)
[2019-02-25] MEDS: IBUPROFEN 800 MG TAB PO ×2 (05:35→15:15)
[2019-02-25 08:04] LABS: ADD MAN DIFF? NO
[2019-02-25 08:10] LABS: BASOPHILS % 0.3 % (0.0-2.0); EOSINOPHILS # 0.1 10^3/ul (0.0-0.5); EOSINOPHILS % 0.7 % (0.0-7.0); HEMATOCRIT 30.4 % (37.0-47.0); HEMOGLOBIN 9.9 g/dl (12.0-16.0); LYMPHOCYTES # 3.5 10^3/ul (0.8-2.9); LYMPHOCYTES % 25.6 % (15.0-51.0); MEAN CORPUSCULAR HEMOGLOBIN 27.3 pg (29.0-33.0); MEAN CORPUSCULAR HGB CONC 32.6 g/dl (32.0-37.0); MEAN CORPUSCULAR VOLUME 83.7 fl (82.0-101.0); MEAN PLATELET VOLUME 9.1 fl (7.4-10.4); MONOCYTE # 0.8 10^3/ul (0.3-0.9); MONOCYTES % 5.6 % (0.0-11.0); NEUTROPHIL # 9.2 10^3/ul (1.6-7.5); NEUTROPHILS % 67.2 % (39.0-77.0); PLATELET COUNT 400 10^3/UL (140-415); RED BLOOD COUNT 3.63 10^6/ul (4.20-5.40); RED CELL DISTRIBUTION WIDTH 13.8 % (11.5-14.5)
[2019-02-25 08:10] LABS: WHITE BLOOD COUNT 13.7 10^3/ul (4.8-10.8)
[2019-02-25] MEDS: SENNA/DOCUSATE NA (8.6MG/50MG) TAB PO (09:00)
[2019-02-25] MEDS: MEASLES,MUMPS,RUBELLA VACCINE INJ SC* (09:00)
[2019-02-25] MEDS: DIPHTH/TET/ACEL PERTUSS (ADULT) 0.5 ML VIAL IM* (09:00)
[2019-02-25] MEDS: DOXYCYCLINE 100 MG TAB PO (09:38)
== END 2019-02-25 16:38 | disposition home or self-care (01) | DRG 788 ==
LOC: OBT 13:48 → L-D 13:49 → OBT 16:02 → PP1 02-22 18:30 → L-D 16:02
PROC: 10D00Z1 Extraction of Products of Conception, Low, Open Approach (ICD-10-PCS; principal; 2019-02-22 14:30)
PROC: 3E033VJ Introduction of Other Hormone into Peripheral Vein, Percutaneous Approach (ICD-10-PCS; 2019-02-22 14:30)
DX: O65.5 Obstructed labor due to abnormality of maternal pelvic organs (principal); O34.211 Maternal care for low transverse scar from previous cesarean delivery; Z3A.38 38 weeks gestation of pregnancy; Z37.0 Single live birth
CPT/HCPCS: 76815; 76818; 81001; 85025; 85610; 85730; 86592; 86850; 86900; 86901; 87086; 99464